=== PATIENT | female | born 1955 | race Caucasian/White ===

== ENCOUNTER 2016-11-28 14:28 | Outpatient (CLI) | payer BC, OTHER ==
--- NOTE | 2016-12-02 21:55 | Mammography Report ---
BILATERAL SCREENING MAMMOGRAM: 11/28/2016 CLINICAL HISTORY: A 61-year-old female in for routine screening mammogram. Patient's family history indicates an aunt with breast cancer at age 72. Patient has had a breast biopsy in 2007. COMPARISON: 10/10/2007, 11/27/2008, 07/23/2011, 09/09/2012, 09/30/2013, 2014, 11/16/2015. TECHNIQUE: Craniocaudad and oblique lateral views of each breast were obtained with Hologic full field digital mammography. FINDINGS: Breast parenchyma demonstrates the breasts to be composed almost entirely of fat. No significant clusters of calcification are seen. No significant masses are noted. No change is detected. IMPRESSION: BREASTS APPEAR RADIOGRAPHICALLY BENIGN. BIRADS CATEGORY: 1, NEGATIVE. RECOMMENDATION: ANNUAL BILATERAL SCREENING MAMMOGRAPHY. STANDARD QUALIFYING STATEMENTS 1. This examination was reviewed with the aid of Computed-Aided Detection (CAD) . 2. A negative or benign imaging report should not delay biopsy if clinically suspicious findings are present. Consider surgical consultation if warranted. More than 5% of cancers are not identified by imaging. 3. Dense breasts may obscure an underlying neoplasm. JOB #: [id number] EXT JOB #: [id number] [facility]USIrvin
== END 2016-11-28 14:29 | disposition home or self-care (01) ==
LOC: DI.N 14:28
PROVIDERS: ATTEND Family Medicine
DX: Z12.31 Encounter for screening mammogram for malignant neoplasm of breast (principal); Z80.3 Family history of malignant neoplasm of breast
CPT/HCPCS: 77067

== ENCOUNTER 2016-12-12 15:04 | Outpatient (CLI) | payer BC, OTHER | END 2016-12-12 15:05 | disposition home or self-care (01) | LOC: LAB.R 15:04 | PROVIDERS: ATTEND Family Medicine | DX: J02.9 Acute pharyngitis, unspecified (principal) | CPT/HCPCS: 87070 ==

== ENCOUNTER 2017-06-17 15:24 | Emergency (ER) | payer BC, OTHER ==
[2017-06-17 15:30] VITALS: BP 196/91
--- NOTE | 2017-06-17 16:11 | XRAY Preliminary Report ---
Exam: XR WRIST 4 VIEW LT IMPRESSION: Distal radius fracture without significant angulation or displacement. [facility] SITE ID: [id number]
--- NOTE | 2017-06-17 16:11 | XRAY Report ---
EXAM: LEFT WRIST RADIOGRAPHY EXAM DATE: 06/17/2017 03:48 PM. CLINICAL HISTORY: Fellow bladder with injury. COMPARISON: None. TECHNIQUE: 4 views. FINDINGS: Bones: There is a lucency through the distal radial articular surface on the oblique image. There is a buckling of cortex on the dorsal distal radius. There is overlying soft tissue swelling. Joints: No subluxation or dislocation. Soft Tissues: There is dorsal wrist soft tissue swelling. IMPRESSION: Distal radius fracture without significant angulation or displacement. [facility] Referring Provider Line: [phone] SITE ID: [id number]
--- NOTE | 2017-06-17 16:36 | ED Physician Documentation ---
History of Present Illness - Stated complaint Stated Complaint: FELL OFF LADDER/L ARM INJ - Chief complaint Chief Complaint: Ext Problem - History obtained from History obtained from: Patient (pt here with left wrist pain after falling off of a 4 foot ladder today while hanging [place] decorations. She states that she tripped while coming down. does not remomber how she landed but states that she did not hit her head, no LOC, no other joint or MSK pain except for the left wrist.) Review of Systems Constitutional: denies: Fever, Chills Cardiac: denies: Chest pain / pressure, Palpitations Respiratory: denies: Dyspnea, Cough GI: denies: Abdominal Pain, Nausea, Vomiting, Diarrhea : denies: Dysuria, Frequency Skin: denies: Rash, Laceration (s) Musculoskeletal: reports: Extremity pain (left wrist), Joint pain (left wrist), Joint swelling (left wrist). 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 Cardiovascular: Cardiac catheterization - Present Medications Home Medications: Ambulatory Orders Medication Instructions Recorded Confirmed Aspirin 81 mg PO DAILY 06/17/17 06/17/17 Atorvastatin Calcium 80 mg PO DAILY 06/17/17 06/17/17 Dexlansoprazole [Dexilant] 60 mg PO PRN PRN 06/17/17 06/17/17 HYDROcod/ACETAM 5/325 [[place] 5/325] 1 each PO Q6H #10 tablet 06/17/17 Lisinopril 2.5 mg PO DAILY 06/17/17 06/17/17 Metoprolol Succinate 50 mg PO BID 06/17/17 06/17/17 Nitroglycerin 0.4 mg SL PRN PRN 06/17/17 06/17/17 - Allergies Allergies/Adverse Reactions: Allergies Allergy/AdvReac Type Severity Reaction Status Date / Time prednisone Allergy Unknown Verified 06/17/17 15:30 - Social History Does the pt smoke?: Yes Smoking Status: Current every day smoker Does the pt drink ETOH?: Yes Does the pt have substance abuse?: No - Immunizations Immunizations are current?: Yes PD ED PE NORMAL - Vitals Vital signs reviewed: Yes - General General: Alert and oriented X 3, Well developed/nourished - Cardiac Cardiac: Strong equal pulses (radial ) - Derm Derm: Normal color, No rash - Extremities Extremities: Other (No MSK findings except for welling around the left wrist, pain with supination, ain with wrist flex/ext. Pain with palpation to the distal radius, no left elbow pain. ) - Neuro Neuro: Alert and oriented X 3, Normal speech, Other (sensation intact to the left UE) - Psych Psych: Normal mood, Normal affect Results - Vitals Vitals: Vital Signs - 24 hr 06/17/17 15:27 Temperature 36.4 C L Heart Rate 64 Respiratory 18 Rate Blood Pressure 196/91 H O2 Saturation 98 Oxygen O2 Source Room air - Rads (name of study) left wrist Radiology: Final report received Procedures - Splint (location) left wrist Splint applied by: Tech Type of splint: Fiberglass, Sugar tong Other: Patient tolerated well PD MEDICAL DECISION MAKING - ED course Complexity details: d/w patient ED course: no other injuries from the fall except for the left wrist pain. Has a non- displaced distal radius fracture. placed in a splint. pt was given care precautions and instructed to follow up with her primary care provider next week. she expressed understanding. Departure - Departure Disposition: 01 Home, Self Care Clinical Impression: Distal radius fracture Condition: Good Instructions: Distal Radius Fx, Splint Care Dc Follow-Up: Lashell García DO [Primary Care Provider] - Prescriptions: HYDROcod/ACETAM 5/325 [[place] 5/325] 1 each PO Q6H #10 tablet Comments: keep the splint on and keep it clean and dry. Call your primary care provider for a follow up next week. Return to the ER for any new or worsening symptoms.
== END 2017-06-17 16:55 | disposition home or self-care (01) ==
LOC: ED 15:24
DX: S52.92XA Unspecified fracture of left forearm, initial encounter for closed fracture (principal); W11.XXXA Fall on and from ladder, initial encounter; I10 Essential (primary) hypertension; I25.2 Old myocardial infarction; E78.00 Pure hypercholesterolemia, unspecified; F17.200 Nicotine dependence, unspecified, uncomplicated
CPT/HCPCS: 29105; 99283

== ENCOUNTER 2017-11-30 09:47 | Outpatient (CLI) | payer BC, OTHER ==
--- NOTE | 2017-12-01 15:09 | Mammography Report ---
DIGITAL SCREENING MAMMOGRAM: 11/30/2017 CLINICAL INDICATION: A 62-year-old for screening. COMPARISON: 11/2016, 11/2015, 10/2014, 08/2012, 07/2011. TECHNIQUE: Routine CC and MLO projections were obtained of the breasts. FINDINGS: The breasts demonstrate fatty replacement bilaterally. Coarse and punctate, typically benign calcifications are present. No suspicious masses, clustered microcalcifications, or regions of architectural distortion are identified. IMPRESSION: BENIGN FINDINGS. RECOMMENDATION: Routine annual screening unless otherwise clinically indicated. BI-RADS CATEGORY 2 - BENIGN FINDINGS. STANDARD QUALIFYING STATEMENTS: 1. This examination was reviewed with the aid of Computer-Aided Detection (CAD). 2. A negative or benign imaging report should not delay biopsy if clinically suspicious findings are present. Consider surgical consultation if warranted. More than 5% of cancers are not identified by imaging. 3. Dense breasts may obscure an underlying neoplasm. TD: 12/01/2017 14:57
== END 2017-11-30 09:48 | disposition home or self-care (01) ==
LOC: DI.N 09:47
PROVIDERS: ATTEND Family Medicine
DX: Z12.31 Encounter for screening mammogram for malignant neoplasm of breast (principal)
CPT/HCPCS: 77067

== ENCOUNTER 2018-06-25 16:16 | Outpatient (CLI) | payer BC, OTHER ==
--- NOTE | 2018-06-27 06:59 | XRAY Report ---
Reason: arthritis left knee Procedure Date: 06/25/2018 Accession Number: [id number] / [id number] Procedure: XRN - Knee Standing LT CPT Code: FULL RESULT: EXAM: LEFT KNEE RADIOGRAPHY EXAM DATE: 06/25/2018 04:28 PM. CLINICAL HISTORY: Arthritis left knee. COMPARISON: None. TECHNIQUE: 2 views. FINDINGS: Bones: Normal. No fractures or bone lesions. Joints: Moderate to severe medial compartment femorotibial joint space loss. Mild lateral compartment joint space loss. No significant patellofemoral degenerative changes seen. No effusion. No subluxations. Soft Tissues: Normal. No soft tissue swelling. IMPRESSION: Moderate to severe medial femorotibial joint space loss. [facility]
== END 2018-06-25 16:17 | disposition home or self-care (01) ==
LOC: DI.N 16:16
PROVIDERS: ATTEND Family Medicine
DX: M13.862 Other specified arthritis, left knee (principal)

== ENCOUNTER 2019-08-26 10:00 | Outpatient (CLI) | payer BC, OTHER | END 2019-08-26 23:59 | disposition home or self-care (01) | LOC: LAB.WCP 10:00 | PROVIDERS: ATTEND Family Medicine | DX: N39.0 Urinary tract infection, site not specified (principal) | CPT/HCPCS: 87077; 87086; 87181 ==

== ENCOUNTER 2020-10-24 10:22 | Outpatient (CLI) | payer BC, MEDICARE, OTHER ==
--- NOTE | 2020-10-24 17:15 | XRAY Report ---
PROCEDURE: Hand 3 View RT INDICATIONS: R HAND PX TECHNIQUE: 3 views of the hand(s) acquired. COMPARISON: None FINDINGS: Bones: No fractures or dislocations. Mild osteoarthritic changes are seen throughout interphalangeal joints. First CMC joint osteoarthritic changes are seen. No suspicious bony lesions. Soft tissues: No suspicious soft tissue calcifications. 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 No fracture or dislocation. No gross bony erosive changes. Reviewed by: Dylan Still MD on 10/24/2020 4:14 PM AKDT Approved by: Dylan Still MD on 10/24/2020 4:14 PM AKDT Station ID: [id number]
== END 2020-10-24 10:23 | disposition home or self-care (01) ==
LOC: DI.N 10:22
PROVIDERS: ATTEND Family Medicine
DX: M19.031 Primary osteoarthritis, right wrist (principal); M19.041 Primary osteoarthritis, right hand

== ENCOUNTER 2021-05-09 10:18 | Outpatient (CLI) | payer BC, MEDICARE, OTHER ==
--- NOTE | 2021-05-27 10:28 | Mammography Report ---
BILATERAL DIGITAL SCREENING MAMMOGRAM 3D/2D: 05/09/2021 CLINICAL: Routine screening. Comparison is made to exams dated: 11/30/2017 mammogram, 11/28/2016 mammogram, 11/16/2015 mammogram, and 11/30/2013 mammogram - [facility]. The tissue of both breasts is predominantly fat ty. No significant masses, calcifications, or other findings are seen in either breast. There has been no significant interval change. IMPRESSION: NEGATIVE There is no mammographic evidence of malignancy. A 1 year screening mammogram is recommended. This exam was interpreted at Station ID: [id number]. NOTE: For mammograms, a report in lay terms will be sent to the patient. Approximately 15% of breast malignancies will not be visualized mammographically. In the management of a palpable breast mass, a negative mammogram must not discourage biopsy of a clinically suspicious lesion. Electronically Signed By: Cristina villela/penrad:05/24/2021 12:17:44 ACR BI-RADS Category 1: Negative 3341F PARENCHYMAL PATTERN: (F) - The breast(s) demonstrate(s) diffuse fatty replacement. BI-RADS CATEGORY: (1) - 1 RECOMMENDATION: (ANNUAL) - Recommend routine annual screening mammography. [id number] 1 year screening LATERALITY: (B)
== END 2021-05-09 10:19 | disposition home or self-care (01) ==
LOC: DI.N 10:18
DX: Z12.31 Encounter for screening mammogram for malignant neoplasm of breast (principal)

== ENCOUNTER 2021-12-21 08:00 | Outpatient (CLI) | payer BC, MEDICARE, OTHER | END 2021-12-21 23:59 | disposition home or self-care (01) | LOC: LAB.N 08:00 | PROVIDERS: ATTEND Nurse Practitioner | DX: N39.0 Urinary tract infection, site not specified (principal) | CPT/HCPCS: 87077; 87086; 87181 ==

== ENCOUNTER 2022-08-18 09:14 | Outpatient (CLI) | payer MEDICARE, OTHER ==
--- NOTE | 2022-08-19 09:44 | Mammography Report ---
BILATERAL DIGITAL SCREENING MAMMOGRAM 3D/2D: 08/18/2022 CLINICAL: Routine screening. Comparison is made to exams dated: 05/09/2021 mammogram, 11/30/2017 mammogram, 11/28/2016 mammogram, mammogram, 10/13/2014 mammogram, and 11/30/2013 mammogram - [facility]. There are scattered areas of fibroglandular density in both breasts (category b / 25%-50% glandular t issue). No significant masses, calcifications, or other findings are seen in either breast. There has been no significant interval change. IMPRESSION: NEGATIVE There is no mammographic evidence of malignancy. A 1 year screening mammogram is recommended. Based on the Tyrer Cuzick model (a risk assessment model) the patients lifetime risk is 5.6% and her 10 year risk is 2.8%. According to the ACR, ACS, and NCCN guidelines, an annual breast MRI exam aleksandar g with mammogram is recommended if the patients lifetime risk is 20% or greater. This exam was interpreted at Station ID: [id number]. NOTE: For mammograms, a report in lay terms will be sent to the patient. Approximately 15% of breast malignancies will not be visualized mammographically. In the management of a palpable breast mass, a negative mammogram must not discourage biopsy of a clinically suspicious lesion. Electronically Signed By: Ti Gipson M.D., jr/jami:08/18/2022 10:57:34 ACR BI-RADS Category 1: Negative 3341F PARENCHYMAL PATTERN: (A) - The breast(s) demonstrate(s) scattered fibroglandular densities. BI-RADS CATEGORY: (1) - 1 RECOMMENDATION: (ANNUAL) - Recommend routine annual screening mammography. [id number] 1 year screening LATERALITY: (B)
== END 2022-08-18 09:15 | disposition home or self-care (01) ==
LOC: DI.N 09:14
DX: Z12.31 Encounter for screening mammogram for malignant neoplasm of breast (principal)

== ENCOUNTER 2024-03-15 13:43 | Outpatient (CLI) | payer MEDICARE, OTHER ==
--- NOTE | 2024-03-15 15:33 | XRAY Report ---
PROCEDURE: Knee 3V LT INDICATIONS: LEFT KNEE ARTHRITIS TECHNIQUE: 3 views of the knee(s) were acquired. COMPARISON: None. FINDINGS: Bones: No fractures or dislocations. No suspicious bony lesions. Tricompartmental joint space roldan rowing with associated osteophytosis. Soft tissues: Small knee joint effusion. No suspicious soft tissue calcifications or masses. IMPRESSION: No acute bony abnormality. Small knee joint effusion. Mild to moderate tricompartmental osteoarthritis. Kellgren-Don scale of osteoarthritis: 2. Reviewed by: Mike Perez MD on 03/15/2024 3:32 PM PDT Approved by: Mike Perez MD on 03/15/2024 3:32 PM PDT Station ID: [id number]
== END 2024-03-15 13:44 | disposition home or self-care (01) ==
LOC: DI 13:43
PROVIDERS: ATTEND Physician Assistant Medical
DX: M17.12 Unilateral primary osteoarthritis, left knee (principal); M25.462 Effusion, left knee